=== PATIENT | male | born 1970 | race Caucasian/White ===

== ENCOUNTER 2018-04-20 19:09 | Emergency (ER) | payer BC, SELFPAY ==
[2018-04-20 19:10] VITALS: BP 153/98; PULSE 57; RESP 18; TEMP 36.7; O2SAT 95; BMI 31.8
--- NOTE | 2018-04-20 19:45 | RAD_ITS ---
STUDY: X-RAY - RIGHT FOOT CLINICAL: Male, 47 years old. Pain and swelling of the great toe increasing today. TECHNIQUE: 3 view(s) of the foot. COMPARISON: None. FINDINGS: Normal talus, calcaneus, and tarsal bones. Normal visualized subtalar, talonavicular, calcaneocuboid, tarsal and tarsometatarsal articulations. Normal metatarsi. Normal metatarsophalangeal joint of the great toe. Normal tibial and fibular sesamoid bones. Normal interphalangeal joint of the great toe. Normal phalanges of the great toe. Normal second through fifth metatarsophalangeal joints. Normal interphalangeal joints and phalanges of the lesser toes. The soft tissue structures are unremarkable. RAD/Foot min 3 Views IMPRESSION: Normal x-ray examination of the foot. Electronically Signed: Be Ceballos DO at 20:04 EDT Tel [phone], Service support ,
--- NOTE | 2018-04-20 20:20 | ED.VISSUMM ---
- ER Visit Summary Date of Service: 04/20/18 Chief Complaint: Great toe redness History of Present Illness: The patient is a 47 M reports pain, redness, and swelling to the right great toe that has been progressive in onset over the past 2 days. Patient denies any injury. 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 Recent blood work indicates his creatinine was 1.8. Physical Examination: Vital signs grossly unremarkable. Patient sitting upright in bed no acute distress. Heart is regular rate and rhythm. Lung sounds are clear. Right lower extremity examination was erythema, slight edema, and tenderness to the right great toe, worse at the IP joint. There is no paronychia or felon. There is no tenderness at the MTP joint. Test Results: Right foot x-rays are obtained and reveal clean joint space with normal appearance to bone. Emergency Department Course and Treatment: I discussed with patient that I believe he likely has gout. He is unable to take NSAIDs secondary to his single kidney. He has taken prednisone in the past without difficulty. Patient is given a prednisone taper. He declines anything stronger for pain. Treatment Plan: [] Disposition: Discharge Impression: Gout, right great toe This note was generated with [employer] dictation software. It may contain incorrect words, spelling, and punctuation that were not noted in review of the chart prior to signing ED Disposition - Plan for ED Patient: Disposition: Home or Assisted Living Chief Complaint: Cellulitis Instructions: ED Arthritis Gout Prescriptions: Prednisone 10 mg PO UD #33 tablet Referrals: Jeremias Mayorga MD [Primary Care Provider] - 1 Week
--- NOTE | 2018-04-20 20:23 | ED.DEP ---
ED Disposition - Plan for ED Patient: Disposition: Home or Assisted Living Chief Complaint: Cellulitis Instructions: ED Arthritis Gout Prescriptions: Prednisone 10 mg PO UD #33 tablet Referrals: Jeremias Mayorga MD [Primary Care Provider] - 1 Week
[2018-04-20] MEDS: predniSONE 20 MG Tablet 60 MG PO (20:45)
[2018-04-20 20:48] VITALS: RESP 16
--- NOTE | 2018-04-20 20:48 | ED.RN ---
REVIEWED D/C INSTRUCTIONS, FOLLOW UP CARE, PRESCRIPTION, AND S/S THAT WOULD WARRANT A RETURN TO THE ED WITH PT. PT VERBALIZED AN UNDERSTANDING AND DENIES FURTHER QUESTIONS FOR THIS RN. PT SKIN P/W/D, RESP EVEN AND UNLABORED, PT A&O X 3, NO DISTRESS NOTED. PT AMBULATED OUT OF ED, GAIT STEADY.
== END 2018-04-20 20:49 | disposition home or self-care (01) ==
PROVIDERS: Emergency Provider Emergency Medicine; Family Provider Family Medicine; PCP Family Medicine
DX: M10.9 Gout, unspecified (principal); Z52.4 Kidney donor; J45.909 Unspecified asthma, uncomplicated; Z79.51 Long term (current) use of inhaled steroids
CPT/HCPCS: 73630; 99283